=== PATIENT | male | born 1945 | race Caucasian/White ===

== ENCOUNTER 2021-07-26 01:11 | Day surgery (SDC) | payer MEDICARE, SELFPAY ==
[2021-07-17 11:01] VITALS: BMI 32.2
--- NOTE | 2021-07-25 14:19 | WPDGICN ---
GI Consult Note Consult date/time: 07/25/21 14:19 HPI: Fan Forman is a 75 year old male With piecemeal removal of a large cecal polyp in 2012 in [place]. A subsequently colonoscopy 6 months later revealed 10 more polyps that were removed. He has had subsequent colonoscopies 2014 2017 with multiple polyps removed each time. [facility] Social History Social History Years smoked: 50 Smoking status: Current every day smoker Tobacco type: cigarettes Alcohol intake: current Drinks per week: 6 Substance use: current Substance use type: marijuana Other substance usage details: Multiple times a week Living arrangements: with family Spiritual care concerns: No Meds Home Medications and Allergies Home Medications Medication Instructions Recorded Confirmed Type atorvastatin 40 mg PO DAILY 07/17/21 07/17/21 History escitalopram oxalate 40 mg PO DAILY 07/17/21 07/17/21 History glipizide-metformin 1 tablet PO DAILY 07/17/21 07/17/21 History quinapril 40 mg PO DAILY 07/17/21 07/17/21 History Allergies Allergy/AdvReac Type Severity Reaction Status Date / Time No Known Allergies Allergy Verified 07/17/21 11:00
[2021-07-26 07:19] VITALS: BP 156/88; PULSE 85; RESP 18; TEMP 36.4; O2SAT 97; BMI 31.9
[2021-07-26 07:19] LABS: Glucose Point of Care 190 mg/dl (65-105)
[2021-07-26] MEDS: LACTATED RINGERS 1,000 ML 150 ML IV CONT (07:24)
--- NOTE | 2021-07-26 07:27 | WPDGICN ---
Assessment and Plan Assessment and plan (1) Colon cancer screening: Code(s): Z12.11 - Encounter for screening for malignant neoplasm of colon Status: Acute Assessment and Plan: Colonoscopy with possible biopsy or polypectomy or cautery or injection of substances. (2) Personal history of colonic polyps: Code(s): Z86.010 - Personal history of colonic polyps Status: Acute GI Consult Note Consult date/time: 07/26/21 07:27 HPI: Fan Forman is a 75 year old male Who is here for colon cancer screening. He has had numerous polyps removed in the past. Nine years ago he had a large polyp that was removed by endoscopic mucosal resection at [facility]. Six months later he had 10 more polyps removed. Year after that he had several more polyps removed. His last colonoscopy, over 3 years ago, he had 2 or 3 polyps. He is having no symptoms at this time. Review of Systems Review of Systems: All systems reviewed & are unremarkable except as noted in HPI and below PMFSH Social History Social History Years smoked: 50 Smoking status: Current every day smoker Tobacco type: cigarettes Alcohol intake: current Drinks per week: 6 Substance use: current Substance use type: marijuana Other substance usage details: Multiple times a week Living arrangements: with family Spiritual care concerns: No Meds Home Medications and Allergies Home Medications Medication Instructions Recorded Confirmed Type atorvastatin 40 mg PO DAILY 07/17/21 07/26/21 History escitalopram oxalate 40 mg PO DAILY 07/17/21 07/26/21 History glipizide-metformin 1 tablet PO DAILY 07/17/21 07/26/21 History quinapril 40 mg PO DAILY 07/17/21 07/26/21 History Allergies Allergy/AdvReac Type Severity Reaction Status Date / Time No Known Allergies Allergy Verified 07/26/21 07:19 Vital Signs Vital Signs - 24 hr 07/26/21 07:19 Temperature 36.4 C L Pulse Rate 85 Respiratory Rate 18 Blood Pressure 156/88 H Pulse Oximetry 97 Exam Const: General: alert Orientation/consciousness: patient oriented x3 Resp: Auscultation: clear to auscultation bilaterally Cardio: Rhythm: regular rhythm GI: GI Palp: Yes Soft to palpation and No Tenderness to palpation present (GI) Neuro: General: patient oriented x3
--- NOTE | 2021-07-26 08:10 | P.PNAN_ITS ---
Anes - Initial Pre Proc Eval Procedure: Operation Date: 07/26/21 08:30 Proposed Procedures p Screening Colonoscopy - Tate Tay MD Date/Time: 07/26/21 08:10 Surgeon: Tate Tay MD Pre Op Diagnosis: hx of colon polyps Patient Data Age: 75 Gender: M Height: 1.85 m Weight: 109.9 kg Last Vital Signs Temp 97.5 F L 07/26/21 07:19 Pulse 85 07/26/21 07:19 Resp 18 07/26/21 07:19 BP 156/88 H 07/26/21 07:19 Pulse Ox 97 07/26/21 07:19 Allergies Allergy/AdvReac Type Severity Reaction Status Date / Time No Known Allergies Allergy Verified 07/26/21 07:19 Home Medications Medication Instructions Recorded Confirmed Type atorvastatin 40 mg PO DAILY 07/17/21 07/26/21 History escitalopram oxalate 40 mg PO DAILY 07/17/21 07/26/21 History glipizide-metformin 1 tablet PO DAILY 07/17/21 07/26/21 History quinapril 40 mg PO DAILY 07/17/21 07/26/21 History Laboratory Tests 07/26/21 07:17 POC Capillary Glucose 190 mg/dl H mg/dl (65-105) Patient hx anesthesia problems: none Family hx anesthesia problems: none Results Review: All pre-operative results and documents have been reviewed as part of the pre-operative evaluation. [facility] Social History Social History Years smoked: 50 Smoking status: Current every day smoker Tobacco type: cigarettes Alcohol intake: current Drinks per week: 6 Substance use: current Substance use type: marijuana Other substance usage details: Multiple times a week Living arrangements: with family Spiritual care concerns: No Anes - Eval Final PreProcedure Day of Procedure 07/26/21 08:10 Patient weight: obese Heart: regular rate and rhythm Lungs: clear to auscultation Airway: Mallampati scale class II Neurological: alert and oriented Last oral intake: >/= 8 hours ASA classification: III Emergent: no Anesthetic plan: proceed Anesthesia type and monitoring: general GIVS and standard monitoring Results Review: All pre-operative results and documents have been reviewed as part of the pre-operative evaluation. Informed Consent: The patient's anesthetic plan and its attendant risks and benefits were discussed with the patient/family/POA. Questions were solicited and answers provided to the satisfaction of the patient/family/POA.
[2021-07-26 08:44] VITALS: BP 152/92; PULSE 65; RESP 24; O2SAT 96
[2021-07-26 08:54] VITALS: BP 162/96; PULSE 58; RESP 19; O2SAT 99
[2021-07-26 09:04] VITALS: BP 174/97; PULSE 60; RESP 18; O2SAT 99
== END 2021-07-26 09:14 | disposition home or self-care (01) ==
PROVIDERS: PCP Internal Medicine; Visit Provider Internal Medicine Gastroenterology
PROC: 0DJD8ZZ Inspection of Lower Intestinal Tract, Via Natural or Artificial Opening Endoscopic (ICD-10-PCS; CPT 45378; principal; 2021-07-26 08:30)
DX: Z12.11 Encounter for screening for malignant neoplasm of colon (principal); K64.8 Other hemorrhoids; K57.30 Diverticulosis of large intestine without perforation or abscess without bleeding; K63.5 Polyp of colon; F17.210 Nicotine dependence, cigarettes, uncomplicated; F12.90 Cannabis use, unspecified, uncomplicated; Z79.84 Long term (current) use of oral hypoglycemic drugs
CPT/HCPCS: 45385; 45380; 82948; 88305; J2704; J7120